=== PATIENT | male | born 1980 | race Two or more races ===

== ENCOUNTER 2022-07-05 08:55 | Outpatient (CLI) | payer OTHER | END 2022-07-05 08:58 | disposition home or self-care (01) | LOC: SONOGRAMA 08:55 | PROVIDERS: ATTEND Pathology Anatomic Pathology & Clinical Pathology | DX: D34 Benign neoplasm of thyroid gland (principal); D49.7 Neoplasm of unspecified behavior of endocrine glands and other parts of nervous system ==